=== PATIENT | female | born 1990 | race Caucasian/White ===

== ENCOUNTER 2018-07-10 18:03 | Observation (INO) ==
[2018-07-10] MEDS ORDERED: Ringers Solution, Lactated 1,000 ML IVC SCH (18:45)
[2018-07-10 18:55] LABS: Basophils % 0.4 %; Eosinophils # 0.1 K/mcL (0.0-0.6); Eosinophils % 1.1 %; Hematocrit 33.7 % (35.3-44.9); Hemoglobin 11.7 g/dL (11.5-15.4); Immature Granulocytes % 0.4 % (0-4); Lymphocytes % 28.4 %; Mean Corpuscular HGB Conc 34.7 g/dL (31.6-35.5); Mean Corpuscular Hemoglobin 31.2 pg (28.0-33.3); Mean Corpuscular Volume 89.9 fL (83.0-100.0); Mean Platelet Volume 11.9 fL (9.4-12.4); Monocytes # 0.5 K/mcL (0.0-1.3); Monocytes % 6.5 %; Neutrophils # 4.5 K/mcL (1.6-8.9); Platelet Count 187 K/mcL (140-400); Red Blood Count 3.75 M/mcL (3.82-4.97); Red Cell Distribution Width 13.2 % (11.5-14.5); Segmented Neutrophils % 63.2 %
[2018-07-10] MEDS: *HR* Labetalol 20 MG/4 ML SYRINGE IVP ONE ×2 (18:56→21:39)
[2018-07-10 19:10] LABS: Amphetamine Screen,Urine Negative ng/mL (Cutoff=1000); Barbiturate Screen,Urine Negative ng/mL (Cutoff=200); Benzodiazepines Screen,Urine Negative ng/mL (Cutoff=200); Cannabinoid Screen,Urine Negative ng/mL (Cutoff = 50); Cocaine Screen,Urine Negative ng/mL (Cutoff= 300); Creatinine,Urine 16 mg/dL; Opiate Screen,Urine Negative ng/mL (Cutoff=300); Phencyclidine Screen,Urine Negative ng/mL (Cutoff=25); Protein/Creatinine Ratio,Urine 0.69 mg/mg (0.00-0.20)
[2018-07-10 19:20] LABS: Alanine Aminotransferase 33 Units/L (7-52); Aspartate Amino Transferase 40 Units/L (13-39); BUN/Creatinine Ratio 17 (6-26); Blood Urea Nitrogen 11 mg/dL (6-20); Lactate Dehydrogenase 193 Units/L (140-271); Uric Acid 6.6 mg/dL (2.3-7.6); eGFR For Non-African Americans > 60 (> 60)
[2018-07-10] MEDS ORDERED: Acetaminophen 325 MG TABLET PO PRN (19:41)
--- NOTE | 2018-07-10 20:34 | OB/GYN History & Physical ---
Date of Encounter: 07/11/18 Time of Encounter: 20:22 Assessment and Plan (1) 35 weeks gestation of Current visit: Yes Status: Acute NST q shift GBS collected and sent for processing (2) Gestational hypertension affecting second Current visit: Yes Status: Acute Admit to Antepartum for observation of BP and labs Recheck PIH labs in am Start 24-hour urine Plan of care per consult with Dr. Ybarra (3) GDM (gestational diabetes mellitus), class A1 Current visit: Yes Status: Acute BG Fasting and 2 hours postprandial (4) NST (non-stress test) reactive Current visit: Yes Status: Acute Continue NST q shift while in hospital History of Present Illness Chief complaint: elevated bp at home HPI: Ms. Yanez is a 28 year old female at 35 weeks 1 days gestation with an estimated date of of 08/13/18 dated by early ultrasound. She presents today with reports of blood pressures elevated to 170s over 110s at home. She denies headache, blurry vision, epigastric pain. She is currently taking 200 mg of labetalol twice daily for known gestational hypertension. She recently had PIH labs drawn in the office and they were negative. Her has also been complicated by gestational diabetes thus far diet controlled. She also had mild bilateral pelviectasis early on in her that has now apparently resolved. She is followed by Dr. Nagel throughout her . records are available electronically and have been reviewed. Labs: A+ GBS unknown Hep B- HIV- T. Palladium- GC/Cl unknown Rubella immune Varicella immune Past Med Surg Social Fam HX - Past Medical History Medical history: no medical history Psychiatric history: no psych history - Past Surgical History Surgical History: other Additional surgical history: T&A, wisdom teeth - Social History Smoking Status: Never smoker Smokeless Tobacco Status: No Alcohol use: none Drug use: none - Family History Father Living Status: Still Living Hx Family Cardiac Disorders: Yes (hypertension) Obstetrical History - Pregnancies : 2 Para: 0 Term: 0 : 0 Ab's: 1 (2016) Livin Medications and Allergies Formula Tablet 02/14/18 [History] Colace 100 mg PO DAILY 07/10/18 [History] Ferrous Sulfate 324 mg PO DAILY 07/10/18 [History] Labetalol HCl 200 mg PO BID 07/10/18 [History] Allergy/AdvReac Type Severity Reaction Status Date / Time No Known Allergies Allergy Verified 02/14/18 13:37 Review of System OB All systems PM: reviewed and no additional remarkable complaints except as stated Exam - Constitutional Constitutional: well developed, well nourished, no acute distress, obese - HEENT HEENT: PERRL, Normocephaly, Mucus Membranes Moist - Neck Neck exam: full ROM - Lungs Respiratory exam: CTAB - Cardiovascular Cardiovascular exam: RRR, +S1, +S2 - Breasts Breast: bilateral: normal - Abdomen Abdomen: Present: bowel sounds normal, gravid, non tender - Extremities Extremities exam: full ROM, normal capillary refill, normal inspection, radial pulses palpable and symmetrical - Uterus Uterus exam: Present: normal contour - Anus/Rectum Anus/Rectum: Present: normal perianal skin Results Result Diagrams: 07/10/18 18:31 07/10/18 18:31 Abnormal lab results RBC 3.75 M/mcL (3.82-4.97) L 07/10/18 18:31 Hct 33.7 % (35.3-44.9) L 07/10/18 18:31 AST 40 Units/L (13-39) H 07/10/18 18:31 Protein/Creatinin Ratio 0.69 mg/mg (0.00-0.20) H 07/10/18 18:45 All other labs normal. - VTE Reasons for not Prescribing Prophylaxis: Treatment not Indicated - Low risk for VTE
[2018-07-10] MEDS ORDERED: Dextrose Gel 15 GM/37.5 ML TUBE PO PRN ×2 (21:03)
[2018-07-11 04:52] LABS: Basophils % 0.4 %; Eosinophils # 0.1 K/mcL (0.0-0.6); Hematocrit 32.1 % (35.3-44.9); Hemoglobin 11.1 g/dL (11.5-15.4); Immature Granulocytes % 0.1 % (0-4); Lymphocytes # 2.2 K/mcL (0.6-4.6); Lymphocytes % 33.1 %; Mean Corpuscular HGB Conc 34.6 g/dL (31.6-35.5); Mean Corpuscular Hemoglobin 31.3 pg (28.0-33.3); Mean Corpuscular Volume 90.4 fL (83.0-100.0); Mean Platelet Volume 12.1 fL (9.4-12.4); Monocytes # 0.6 K/mcL (0.0-1.3); Monocytes % 8.2 %; Neutrophils # 3.8 K/mcL (1.6-8.9); Platelet Count 173 K/mcL (140-400); Red Blood Count 3.55 M/mcL (3.82-4.97); Red Cell Distribution Width 13.4 % (11.5-14.5); Segmented Neutrophils % 57.2 %
[2018-07-11 05:11] LABS: Alanine Aminotransferase 27 Units/L (7-52); Aspartate Amino Transferase 32 Units/L (13-39); BUN/Creatinine Ratio 17 (6-26); Blood Urea Nitrogen 12 mg/dL (6-20); Lactate Dehydrogenase 169 Units/L (140-271); Uric Acid 6.6 mg/dL (2.3-7.6); eGFR For Non-African Americans > 60 (> 60)
[2018-07-11] MEDS: Betamethasone Acet/SodPhos 30 MG/5 ML VIAL IM SCH (09:14)
[2018-07-11 23:42] LABS: Total Volume 24 Hour,Urine 2.62 Liters (0.60-1.60)
[2018-07-12 05:31] LABS: Basophils % 0.1 %; Hematocrit 36.6 % (35.3-44.9); Hemoglobin 12.2 g/dL (11.5-15.4); Immature Granulocytes % 0.5 % (0-4); Lymphocytes # 1.4 K/mcL (0.6-4.6); Lymphocytes % 12.4 %; Mean Corpuscular HGB Conc 33.3 g/dL (31.6-35.5); Mean Corpuscular Hemoglobin 30.7 pg (28.0-33.3); Mean Platelet Volume 12.3 fL (9.4-12.4); Monocytes # 0.4 K/mcL (0.0-1.3); Monocytes % 3.3 %; Neutrophils # 9.6 K/mcL (1.6-8.9); Platelet Count 206 K/mcL (140-400); Red Blood Count 3.98 M/mcL (3.82-4.97); Red Cell Distribution Width 13.2 % (11.5-14.5); Segmented Neutrophils % 83.7 %
--- NOTE | 2018-07-12 08:15 | Event Note ---
Date of Encounter: 07/12/18 Time of Encounter: 08:10 S: 28yo female at 35+4wks GA who was admitted on 06/20/2018 with concern for Pre-Ecl ampsia. SHe initially presented with BP 170/110, and required 1 dose of IV labetalol prior to starting labetalol 200mg TID. PreE labs were performed on admission and were WNL. 24hr urine was completed and totaled 600mg/24hr. This qualifies the patient as pre-eclampsia without severe features. Since her initial IV dose, her BP have been mild range, and were normotensive overnight. THe patient did receive BMZ yesterday (07/11) and her second dose today (07/12). WE discussed our concern for early delivery 2/2 worsening of si/sx consistent with PRE-E. SHe is aware of the signs suggestive of progression of pre-eclampsia. Per our recommendation, we did ALSO discuss the need for her to have close testing following discharge including: twice weekly NSTs, weekly PreE labs, and a growth US. THe patient is OK with the above plan, as we did schedule this with her practice prior to her discharge. Obstetrically, she is without complaints. Denies n/v/d. Reports active fetus. Denies VB/LOF/contraction(S). O: PreE labs normal this AM (0800) General: well appearing, NAD Abdomen: gravid, no abnormaliy appreciated, no RUQP Extremities: mild swelling, appropriate and equal bilaterally, +pulses NST performed: ____R&R for GA A/P: 28yo at 35+4wks GA female who was admitted to with concern for pre- eclampsia 1. PreE without severe features - 1 severe range BP, resolved with 1 dose IV labetalol - currently taking 200mg TID po labetalol with NR-MR BP - asymptomatic: denies MORELAND/CP/SOB/n/v/d/swelling/blurry vision/RUQP - VSS, HDS, denies VB/LOF/contraction(S) - 24hr urine: 600, +proteinuria - labs this AM: normal 2. MWB - UTD PNC with Dr. Nagel - twice weekly NSTs until delivery, weekly PReE labs, growth US - denies VB/LOF/contraction(S) - BMZ round 1 complete (07/11-07/12) 3. FWB - R&R NST for GA - good FM per patient - S = D Dispo: Patient to be scheduled with Dr. Nagel for twice weekly NSTs, weekly labs, with plans for delivery 37-38 weeks pending patient status. Current dx: "Pre-Eclampsia without severe features". MD VAN
[2018-07-12] MEDS: Betamethasone Acet/SodPhos 30 MG/5 ML VIAL IM SCH (08:42)
[2018-07-12 12:10] VITALS: BP 143/87
[2018-07-12 14:15] LABS: Basophils % 0.1 %; Hematocrit 34.6 % (35.3-44.9); Hemoglobin 11.8 g/dL (11.5-15.4); Immature Granulocytes % 3.2 % (0-4); Lymphocytes % 10.1 %; Mean Corpuscular HGB Conc 34.1 g/dL (31.6-35.5); Mean Corpuscular Hemoglobin 31.1 pg (28.0-33.3); Mean Corpuscular Volume 91.1 fL (83.0-100.0); Mean Platelet Volume 11.9 fL (9.4-12.4); Monocytes # 0.3 K/mcL (0.0-1.3); Monocytes % 2.9 %; Neutrophils # 8.5 K/mcL (1.6-8.9); Platelet Count 208 K/mcL (140-400); Red Cell Distribution Width 13.3 % (11.5-14.5); Segmented Neutrophils % 83.7 %
[2018-07-12 14:22] LABS: Alanine Aminotransferase 24 Units/L (7-52); Aspartate Amino Transferase 23 Units/L (13-39); BUN/Creatinine Ratio 24 (6-26); Blood Urea Nitrogen 18 mg/dL (6-20); Lactate Dehydrogenase 160 Units/L (140-271); Uric Acid 7.8 mg/dL (2.3-7.6); eGFR For Non-African Americans > 60 (> 60)
== END 2018-07-12 15:21 | disposition home or self-care (01) ==
LOC: 1NENULAB → 1NENUOBS 07-11 00:40
PROVIDERS: ADMIT Advanced Practice Midwife; ATTEND Advanced Practice Midwife